=== PATIENT | female | born 1980 | race Hispanic/Latino ===

== ENCOUNTER 2020-04-28 07:15 | Day surgery (SDC) | payer OTHER ==
[2020-04-28] MEDS ORDERED: Ringers Lactate 1,000 ML IV ONE (07:38)
[2020-04-28] MEDS ORDERED: CEFAZOLIN/SWI 1gm 1 GM/10 ML SYR ONE (07:39)
[2020-04-28] MEDS ORDERED: MIDAZOLAM HCL 2 MG/2 ML INJ ONE (07:40)
[2020-04-28] MEDS ORDERED: propofoL 200 MG/20 ML VIAL IV ONE (07:40)
[2020-04-28] MEDS ORDERED: LIDOCAINE 1% MPF 5 ML VIAL ONE (07:40)
[2020-04-28] MEDS ORDERED: FENTANYL CITR 100 MCG/2 ML ONE (07:40)
[2020-04-28] MEDS ORDERED: BUPIVACA 0.25%/EPI 0.0005%/PF 30 ML VIAL ONE (08:16)
[2020-04-28] MEDS ORDERED: dexAMETHasone 10 MG/ML VIAL ONE (08:44)
[2020-04-28] MEDS ORDERED: KETOROLAC 30 MG/ML INJ ONE (08:45)
[2020-04-28] MEDS ORDERED: ONDANSETRON 4 MG/2 ML VIAL ONE (08:54)
[2020-04-28] MEDS ORDERED: Phenylephrine HCl 10 MG/ML 1 ML VIAL ONE (09:03)
[2020-04-28] MEDS ORDERED: NS 0.9% VIAL 10 ML ONE (09:03)
--- NOTE | 2020-04-28 09:06 | P.OP ---
Preoperative diagnosis: RIGHT shoulder lipoma Postoperative diagnosis: RIGHT shoulder lipoma Primary procedure: Wide Local Excision of RIGHT shoulder lipoma Anesthesia: GETA + Local Estimated blood loss: <5cc Specimen: Lipoma 10x8x1 cm Findings: RIGHT shoulder lipoma Complications: None Transferred to: Recovery Room Condition: Good
--- NOTE | 2020-04-28 10:24 | OP ---
Date of Procedure: 04/28/2020 Surgeon: Peewee Heaton MD, Preoperative Diagnosis: Right shoulder lipoma. Postoperative Diagnosis: Right shoulder lipoma. Procedure Performed: Wide local excision of right shoulder lipoma. Anesthesia: General endotracheal plus local. Estimated Blood Loss: Less than 5 mL. Specimen: Lipoma 10 x 8 x 1 cm. Findings: Right shoulder lipoma. Complications: None. Transferred to recovery room in good condition. Procedure In Detail: After informed consent was obtained, patient was brought to the operating room, prepped and draped in the usual sterile fashion. After adequate anesthesia was achieved, I made a l inear incision for approximately 9 cm overlying the right shoulder in the scapular region. I dissect ed down through subcutaneous tissues using electrocautery and circumferentially removed a lipomatous mass, which was found to be a 10 x 8 x 1 cm roughly. Had no ominous features. I circumferentially d issected it down off the fascia overlying the scapular musculature and removed it en bloc in its enti rety and sent off for pathologic examination. Irrigated the wound. At this point, closed the deep d ermal layer with interrupted 3-0 Vicryl sutures in a deep fascial closure followed by a deep dermal l alyssa and then skin was closed with a 4-0 Monocryl in a running fashion. Dermabond was placed over to p. The patient tolerated the procedure well without evidence of complication, transferred to PACU in good condition. All counts were correct at the end of the case. Pressure dressing was placed over the patient and patient did w ell throughout. MARISABEL/ANISH Voice ID: [id number] Report ID: [id number]
[2020-04-28 11:29] VITALS: BP 92/55; TEMP 97.9; O2SAT 100
== END 2020-04-28 10:40 | disposition home or self-care (01) ==
LOC: OR 07:15
PROVIDERS: ATTEND Surgery
PROC: 0JBD0ZZ Excision of Right Upper Arm Subcutaneous Tissue and Fascia, Open Approach (ICD-10-PCS; principal; 2020-04-28 08:30)
DX: D17.21 Benign lipomatous neoplasm of skin and subcutaneous tissue of right arm (principal); Z20.828 Contact with and (suspected) exposure to other viral communicable diseases
CPT/HCPCS: 11406; 12034; 81025; 88304; U0002; J2704; J2370; J2250; J3010; J1100; J0690; J7120; J2405